=== PATIENT | female | born 1985 | race Caucasian/White ===

== ENCOUNTER 2020-11-27 10:28 | Emergency (ER) | payer BC, SELFPAY ==
[2020-11-27 10:36] VITALS: BP 108/69; PULSE 107; RESP 14; TEMP 37; O2SAT 100
--- NOTE | 2020-11-27 10:41 | ED.FEVER ---
HPI - Fever General Chief Complaint: Fever Stated Complaint: FEVER Time Seen by Provider: 11/27/20 10:40 Source: patient and RN notes reviewed Mode of arrival: ambulatory Limitations: no limitations History of Present Illness HPI Narrative: 35-year-old female presents to the [facility] with complaints of right flank pain and fevers. Now spread to the rest of the abdomen. Fevers as high as 101.3 Pain started tuesday night. MD elicited complaint: fever Related Data Home Medications Medication Instructions Recorded Confirmed norethindrone-e.estradiol-iron tablet 11/27/20 [Aurovela 24 Fe] Allergies Allergy/AdvReac Type Severity Reaction Status Date / Time No Known Allergies Allergy Verified 11/27/20 10:41 Review of Systems Review of Systems: All systems reviewed & are unremarkable except as noted in HPI and below Constitutional: Constitutional: Reports as per HPI and Reports fever(s) Eyes: Eyes: Reports no additional eye complaints ENT: Reports system reviewed and no additional complaints, except as documented, Denies dysphagia, Denies vertigo, Denies dizziness and Denies sore throat Cardiovascular: Cardiovascular: Reports no additional cardiovascular complaints and Denies chest pain Respiratory: Respiratory: Reports no additional respiratory complaints, Denies cough, Denies dyspnea and Denies wheezing Gastrointestinal: Gastrointestinal: Reports abdominal pain (Right flank, right lower quadrant) and Denies nausea Genitourinary: Genitourinary: Reports no additional female genitourinary complaints Musculoskeletal: Musculoskeletal: Reports no additional musculoskeletal complaints Integumentary/Breasts: Skin/Breast: Reports system reviewed and no additional complaints, except as docu Neurologic: Reports system reviewed and no additional complaints, except as documented Psychiatric: Psychiatric: Reports no additional psychiatric complaints Allergic/Immunologic: Allergic/Immunologic: Reports no additional allergic/immunologic complaints [facility] Past Medical History Medical History (Updated 11/27/20 @ 12:40 by Dara Carnes) No significant medical problems Surgical History Surgical History (Updated 11/27/20 @ 12:40 by Dara Carnes) No significant past surgical history Social History Social History (Updated 11/27/20 @ 12:40 by Dara Carnes) Living arrangements: with family Gender identity (if verbalized by the patient): Female Comments At the time of my signature, I reviewed and agree with the nursing past medical, surgical, social, and family history. There is no relevant family history pertinent to the patient complaint. Exam Const: General: healthy appearing, no acute distress and alert Nutritional Appearance: well nourished Orientation/consciousness: patient oriented x3 HENMT: Head: normal to inspection Ears: external ears normal, TM's normal bilaterally and EAC's normal Eyes: Pupils: Equal, round and reactive pupils present Neck: Neck: normal visual inspection, no lymphadenopathy and no meningeal signs Chest: Chest palpation & inspection: normal inspection of the chest Resp: Effort & Inspection: normal respiratory effort and no use of accessory muscles Auscultation: clear to auscultation bilaterally, no rales, no rhonchi and no wheezes Cardio: Rate: regular rate Rhythm: regular rhythm GI: GI Palp: Yes Soft to palpation, Yes Tenderness to palpation present (GI) (Right upper, right middle, right lower) and Yes Rebound tenderness present (Right lower quadrant) Auscultation: normal bowel sounds : General: Yes no CVA tenderness Back/Spine/Pelvis: Back: no CVA tenderness Skin: General skin exam: normal color Rashes: no rashes Wounds: no wounds Neuro: General: patient oriented x3, moves all extremities, no meningeal signs and no focal motor deficits Cranial nerves: Yes Nystagmus not present Speech: normal speech Gait exam (Neuro): Normal gait present Extrem:
== END 2020-11-27 10:55 | disposition short-term general hospital (02) ==
PROVIDERS: Emergency Provider Nurse Practitioner
DX: R10.31 Right lower quadrant pain (principal)
CPT/HCPCS: 99212; G0463

== ENCOUNTER 2020-11-27 11:28 | Observation (INO) | payer BC, SELFPAY ==
[2020-11-27] VITALS (7 sets, daily range): BP systolic 90–125; BP diastolic 56–68; PULSE 78–116; RESP 14–16; TEMP 36.7–39.2; O2SAT 97–100; BMI 25.4
--- NOTE | ~2020-11-27 | CT_ITS ---
EXAMINATION: CT abdomen pelvis w con DATE: 11/27/2020 14:12 INDICATION: Right lower quadrant and flank pain TECHNIQUE: Computed tomography (CT) of the abdomen and pelvis was performed with 100 cc Omnipaque 350 intravenous contrast. Automated exposure control and iterative reconstruction technique were employe d. Exam dose: 372.76 mGy-cm total exam DLP. COMPARISON: None. FINDINGS: The lung bases are clear. Normal heart size. No pericardial or pleural effusion. The liver, gallbladder, bile ducts, spleen, pancreas, pancreatic duct, and adrenal glands are unremar kable. There are multiple areas of diminished contrast enhancement of the right kidney, likely due to right acute pyelonephritis. There is mild right perinephric fat stranding and mild surrounding fascial thic kening. No urinary tract calculus or hydroureteronephrosis. The urinary bladder and uterus and adnexal areas are unremarkable. There is minimal free fluid in the posterior cul-de-sac, likely physiologic. Normal caliber of the abdominal aorta. No intraperitoneal or retroperitoneal or pelvic mass lesion or adenopathy or ascites. Normal appendix. Mild colonic diverticulosis; no CT evidence of diverticulitis. No bowel obstruction, bowel wall thickening, pneumatosis or intraperitoneal free air. Very small fat-containing umbilical hernia. Included skeletal structures are unremarkable. IMPRESSION: Multiple patchy areas of diminished contrast enhancement of the right kidney, likely due to acute pyelonephritis Reviewed, dictated and finalized at [facility]. Reviewed, dictated and finalized at [facility]. IMPRESSION: Multiple patchy areas of diminished contrast enhancement of the ri ght kidney, likely due to acute pyelonephritis
[2020-11-27 12:16] LABS: Hematocrit 33.9 % (37.0-47.0); Hemoglobin 11.8 g/dL (12.0-15.0); Mean Corpuscular HGB Conc 34.8 g/dl (32-36); Mean Corpuscular Hemoglobin 33.7 pg (26-34); Mean Corpuscular Volume 96.9 fl (80-100); Mean Platelet Volume 9.6 fl (7.4-10.4); Platelet Count Result 301 k/mm3 (150-375); Red Cell Distribution Width 11.9 % (11.5-14.5); White Blood Count 28.2 K/mm3 (4.5-10.0)
[2020-11-27 12:32] LABS: Anion Gap 13 mmol/L (8-16); Blood Urea Nitrogen 11 mg/dL (7-17); Calcium 8.8 mg/dL (8.4-10.2); Carbon Dioxide 23 mmol/L (22-30); Chloride 104 mmol/L (98-107); Estimated CRCL calculation 48 ml/min; Estimated Glomerular Filt Rate 57; Glucose 111 mg/dL (65-110); Potassium 3.6 mmol/L (3.4-5.0); Sodium 140 mmol/L (137-145)
[2020-11-27 12:35] LABS: Add Urine Microscopic? YES; Appearance Urine Cloudy (Clear); Bacteria Urine Trace /hpf; Bilirubin Urine Negative (Negative); Blood Urine 2+ (Negative); Color Urine Yellow (Yellow); Glucose Urine UA Negative (Negative); Ketones Urine Trace mg/dL (Negative); Leukocyte Esterase Ur 3+ LEU/UL (Negative); Mucus Urine Rare /lpf; Nitrate Urine Positive (Negative); Protein Urine 3+ mg/dL (Negative); Specific Grav Ur 1.013 (1.001-1.035); Squamous Epithelial Cell Urine Many /hpf (Few); Urobilinogen Urine Negative mg/dL (<2.0); WBC Urine 51-75 /hpf
[2020-11-27 12:42] LABS: Band Neutrophils Percent 11 % (0-6); Lymphocytes Absolute Manual 1.41 K/mm3 (1.1-4.5); Neutrophils Absolute Manual 26.79 K/mm3 (1.7-7.2); Neutrophils Percent Manual 84 % (46-73); Platelet Estimate Adequate (Adequate); Total Cells Counted 100
--- NOTE | 2020-11-27 13:50 | ED.GENADULT ---
HPI - General Adult General Chief complaint: Abdominal Pain Stated complaint: flank pain right Time Seen by Provider: 11/27/20 13:17 History of Present Illness HPI narrative: Patient is a 35-year-old female who presents ER with reports of abdominal pain and feeling unwell. Reports feeling weak and unwell over the last 2 weeks. She reports 2 days ago she developed pain in her right flank that felt like a pulled muscle that wrapped around to the front of her abdomen. She developed fever with sweats and chills. She also had nausea and vomiting. She went to an urgent care today to obtain a Covid swab so she could return to work and was referred here. She denies any urinary frequency urgency or dysuria. No symptoms of a UTI and she has had UTIs previously. Denies diarrhea. She does have pain in her lower abdomen that is worse with movement. No alleviating factors that she reports. Related Data Home Medications Medication Instructions Recorded Confirmed norethindrone-e.estradiol-iron tablet 11/27/20 [Aurovela 24 Fe] Allergies Allergy/AdvReac Type Severity Reaction Status Date / Time No Known Allergies Allergy Verified 11/27/20 10:41 Review of Systems Review of Systems: All systems reviewed & are unremarkable except as noted in HPI and below Constitutional: Constitutional: Reports chills, Reports fatigue and Reports fever(s) ENT: Denies nasal congestion and Denies sore throat Gastrointestinal: Gastrointestinal: Reports abdominal pain, Denies diarrhea, Reports nausea and Reports vomiting Genitourinary: Genitourinary: Denies nocturia, Denies dysuria and Reports flank pain Musculoskeletal: Musculoskeletal: Denies back pain and Denies muscle cramps PMFSH Past Medical History Medical History (Updated 11/27/20 @ 15:50 by Dennis Valdivia MD) No significant medical problems Surgical History Surgical History (Updated 11/27/20 @ 12:40 by Dara Carnes) No significant past surgical history Social History Social History (Updated 11/27/20 @ 12:40 by Dara Carnes) Living arrangements: with family Gender identity (if verbalized by the patient): Female Exam Narrative: GENERAL: Well-appearing, well-nourished, and in no acute distress. HEAD: Normocephalic, atraumatic. EYES: PERRL and EOMI. CHEST: Clear to auscultation. No respiratory distress. HEART: Tachycardic and regular. Normal peripheral pulses. ABDOMEN: Soft, tender palpation right lower quadrant with guarding, mild tenderness to left lower quadrant that radiates into her right lower quadrant, mild tenderness to right upper quadrant without guarding, nondistended. Minimal right CVA tenderness. EXTREMITIES: Normal range of motion. No edema. SKIN: Warm, dry, no rash. NEURO: N Alert and oriented x3. PSYCH: Normal mood and affect. Course Course Emergency Course: Patient informed results. Admit to hospital service. Ceftriaxone ordered. Vital Signs Vital signs: Vital Signs Temperature 98.1 F 11/27/20 12:00 Pulse Rate 101 H 11/27/20 12:00 Respiratory Rate 14 11/27/20 12:00 Blood Pressure 119/67 11/27/20 12:00 Pulse Oximetry 100 11/27/20 12:00 Temperature 98.1 F 11/27/20 12:00 Pulse Rate 101 H 11/27/20 12:00 Respiratory Rate 14 11/27/20 12:00 Blood Pressure 119/67 11/27/20 12:00 Pulse Oximetry 100 11/27/20 12:00 Medical Decision Making Vital Signs Vital Signs: Vital Signs Temperature 98.1 F 11/27/20 12:00 Pulse Rate 101 H 11/27/20 12:00 Respiratory Rate 14 11/27/20 12:00 Blood Pressure 119/67 11/27/20 12:00 Pulse Oximetry 100 11/27/20 12:00 Temperature 98.1 F 11/27/20 12:00 Pulse Rate 101 H 11/27/20 12:00 Respiratory Rate 14 11/27/20 12:00 Blood Pressure 119/67 11/27/20 12:00 Pulse Oximetry 100 11/27/20 12:00 Lab Data Result diagrams: 11/27/20 12:06 11/27/20 12:06 Labs: Lab Results 11/27/20 11/27/20 11/27/20 Range/Units
[2020-11-27] MEDS: SODIUM CHLORIDE 0.9% IV 1,000 ML 999 ML IV CONT ×2 (13:53→20:34)
[2020-11-27] MEDS: MORPHINE SULFATE (*CRX) 4 MG/ML INJ IV PUSH ×2 (13:55→16:56)
[2020-11-27] MEDS: ONDANSETRON INJ 4 MG/2 ML VIAL IV PUSH ×2 (13:55→18:48)
[2020-11-27] MEDS: ACETAMINOPHEN 325 MG TABLET 650 MG PO ×2 (15:30→18:47)
--- NOTE | 2020-11-27 17:25 | ADMGEN ---
This patient, Minal Dang, was admitted to 2 Medical Room 254-01. Patient/family oriented to hospital policies and general routines including ID bracelet, bed and alarms, visiting hours, pain management, procedures, bathroom and other care routines, personal items, smoking policy, room service/diet, and visiting hours. Information on how to activate the Rapid Response Team has been discussed. Patient/Family are encouraged to report perceived risks to care and to ask questions if they do not understand what they are told or what they should do. Report received from ELISSA Gallardo.
[2020-11-27] MEDS: SODIUM CHLORIDE 0.9% IV 1,000 ML 125 ML IV CONT (17:39)
--- NOTE | 2020-11-27 18:00 | PM.IMHP ---
H&P: HPI History of Present Illness Date/Time: 11/27/20 18:00 Chief Complaint: Fever and right flank pain. Narrative: This is a 35-year-old female without significant medical problems who presented to the emergency department earlier today from urgent care for evaluation of fever and right flank pain. She has not really felt well for the past 2 weeks, just a little bit run down without specific symptoms. On Tuesday evening however she developed some discomfort in her right lower back which she attributed to perhaps a strained muscle though she had no injury. Later that evening she developed chills, sweats, and fever up to 103? for which she has been taking ibuprofen. Since that time the pain in her right lower back has continued to worsen, and she describes sharp shooting pain that radiates to the right flank and into the right lower quadrant. The pain is somewhat better if she is hunched forward and it seems to be worse with movement and palpation. CT of the abdomen and pelvis done today on arrival to the emergency department showed multiple patchy areas of diminished contrast enhancement of the right kidney, likely due to pyelonephritis. Interestingly she has not had urinary symptoms and she specifically denies dysuria, urgency, hesitancy, and incontinence. Appetite has been fair. No nausea or vomiting. Review of Systems Review of Systems: Twelve systems were reviewed. No headache. No cold or flu symptoms. She denies cough and shortness of breath. No diarrhea. Last menstrual period was approximately 3 weeks ago. No vaginal discharge. Except as documented, all other systems were reviewed and are negative. [facility] Past Medical History Medical History (Updated 11/27/20 @ 17:23 by Yolanda Barry PA-C) No significant medical problems Surgical History Surgical History (Updated 11/27/20 @ 21:12 by Yolanda Barry PA-C) History of eye surgery X2 as a child for strabismus. Family History Family History Other Lupus Father Diabetes mellitus Hypertension Mother Neoplasm of back Social History Social History (Updated 11/27/20 @ 21:13 by Yolanda Barry PA-C) Social History: Surrogate decision maker: Juan Dang, spouse. Code status: Full code. Smoking status: Former smoker Tobacco type: cigarettes Alcohol intake: never Substance use: former Substance use type: opiates Last use: 11 years Living arrangements: with family Additional living arrangements comments: The patient lives with her and 2 children [place]. 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 Meds Home Medications and Allergies Home Medications Medication Instructions Recorded Confirmed Type norethindrone-e.estradiol-iron 1 tablet PO DAILY 11/27/20 11/27/20 History [Aurovela 24 Fe] Allergies Allergy/AdvReac Type Severity Reaction Status Date / Time No Known Allergies Allergy Verified 11/27/20 17:20 Vital Signs Vital Signs - 24 hr 11/27/20 12:00 Temperature 98.1 F Pulse Rate 101 H Respiratory Rate 14 Blood Pressure 119/67 Pulse Oximetry 100 Exam Narrative: General: Well-developed female sitting up in bed no distress. Weight: 61 kg. BMI: 25.4. Nontoxic in appearance. HEENT: Normocephalic, atraumatic. PERRL, EOMI. Sclerae anicteric. Tacky mucous membranes. Neck: Supple. Respiratory: Lungs are clear to auscultation bilaterally. Cardiovascular: Tachycardic with S1-S2. Gastrointestinal: Abdomen is soft and nondistended with positive bowel sounds. She is tender to palpation in the right low back, flank, and right mid and lower quadrant. Positive right-sided CVA tenderness. Skin: Warm and dry. No rash or lesions on limited exam. Extremities: No cyanosis, clubbing, or edema. Radial and pedal pulses intact. Neurological: Alert. Cranial nerves 2-12 are grossly intact. No eun
[2020-11-27 18:15] LABS: Lactic Acid Reflex 0.7 mmol/L (0.7-2.1)
[2020-11-27 18:25] LABS: Alanine Aminotransferase 17 U/L (4-35); Albumin Level 4.1 g/dL (3.5-5.1); Alkaline Phosphatase 67 U/L (38-126); Aspartate Amino Transferase 21 U/L (14-36); Bilirubin,Total 0.6 mg/dL (0.2-1.3); Magnesium 1.5 mg/dL (1.6-2.3)
[2020-11-27 18:55] LABS: CRP 31.8 mg/dL (<1.0)
[2020-11-27] MEDS: SODIUM CHLORIDE 0.9% IV 1,000 ML 75 ML IV CONT (20:39)
[2020-11-28] VITALS (12 sets, daily range): BP systolic 96–110; BP diastolic 58–64; PULSE 77–111; RESP 14–20; TEMP 36.7–38.5; O2SAT 95–100
[2020-11-28] MEDS: MORPHINE SULFATE (*CRX) 2 MG/ML INJ IV PUSH (00:31)
[2020-11-28] MEDS: KETOROLAC 30 MG/ML VIAL (*BKC) IV PUSH (01:00)
[2020-11-28] MEDS: HYDROcodone/acetaminophen (*CRX) 5-325 MG TABLET 1 TAB PO ×2 (03:02→07:28)
[2020-11-28] MEDS: SODIUM CHLORIDE 0.9% IV 1,000 ML 100 ML IV CONT (04:03)
[2020-11-28 06:40] LABS: Basophils Absolute Auto 0.1 K/mm3 (0.0-0.1); Basophils Percent Auto 0.2 % (0.2-1.2); Eosinophils Absolute Auto 0.1 K/mm3 (0-0.3); Eosinophils Percent Auto 0.2 % (0-4.4); Hematocrit 27.7 % (37.0-47.0); Hemoglobin 9.4 g/dL (12.0-15.0); Immature Granulocyte Absolute 0.63 K/mm3 (0.00-0.031); Immature Granulocyte Percent A 2.8 % (0-0.5); Lymphocytes Percent Auto 9.5 % (18.3-44.2); Mean Corpuscular HGB Conc 33.9 g/dl (32-36); Mean Corpuscular Hemoglobin 33.6 pg (26-34); Mean Corpuscular Volume 98.9 fl (80-100); Mean Platelet Volume 10.3 fl (7.4-10.4); Monocytes Absolute Auto 1.6 K/mm3 (0.1-0.6); Monocytes Percent Auto 7.2 % (2.6-8.5); Neutrophils Absolute Auto 17.7 K/mm3 (1.3-6.7); Neutrophils Percent Auto 80.1 % (45.5-73.1); Platelet Count Result 228 k/mm3 (150-375); Red Cell Distribution Width 11.9 % (11.5-14.5); White Blood Count 22.1 K/mm3 (4.5-10.0)
[2020-11-28 06:47] LABS: Alanine Aminotransferase 16 U/L (4-35); Albumin Level 3.1 g/dL (3.5-5.1); Alkaline Phosphatase 65 U/L (38-126); Anion Gap 8 mmol/L (8-16); Aspartate Amino Transferase 23 U/L (14-36); Bilirubin,Total 0.6 mg/dL (0.2-1.3); Blood Urea Nitrogen 10 mg/dL (7-17); Calcium 7.2 mg/dL (8.4-10.2); Carbon Dioxide 19 mmol/L (22-30); Chloride 108 mmol/L (98-107); Estimated CRCL calculation 58 ml/min; Estimated Glomerular Filt Rate > 60; Glucose 103 mg/dL (65-110); Magnesium 1.7 mg/dL (1.6-2.3); Potassium 3.3 mmol/L (3.4-5.0); Sodium 135 mmol/L (137-145)
--- NOTE | 2020-11-28 07:32 | P.PNIM_ITS ---
Progress Note: A&P Assessment and Plan (1) Sepsis: Code(s): A41.9 - Sepsis, unspecified organism Status: Acute Assessment and Plan: * meets sepsis criteria with fever, tachycardia, and leukocytosis with bandemia in the setting of infection * Abd/Pel CT: Multiple patchy areas of diminished contrast enhancement of the right kidney, likely due to acute pyelonephritis * Lactic acid levels within normal limits however was drawn after she received a bolus of IV fluids * Blood and urine cultures are pending * UA: Cloudy, urine protein 3+, urine blood 2+, urine nitrate positive, leukocyte esterase 3+, wbc's 51-75, squamous cells many * IV antibiotics: Ceftriaxone * IV fluids NS 125 ml/hr, will DC since patient has good PO intake * WBC: 28.2 on admission with high Neuts and bands * Trend labs (2) Pyelonephritis: Code(s): N12 - Tubulo-interstitial nephritis, not specified as acute or chronic Status: Acute Assessment and Plan: * Found on CT * See above (3) Renal insufficiency: Code(s): N28.9 - Disorder of kidney and ureter, unspecified Status: Acute Assessment and Plan: * Cr. could be a little elevated at 1.10 on admission * Current 0.90 * Continue to trend * Strict I&O * Encourage PO intake (4) Hypomagnesemia: Code(s): E83.42 - Hypomagnesemia Status: Acute Assessment and Plan: * MG 1.5 on admission currently 1.7 * Replace with 2gm * Trend labs * Replace as needed (5) Hypokalemia: Code(s): E87.6 - Hypokalemia Status: Acute Assessment and Plan: * K is 3.3 today * Replaced with 40 PO once * Trend labs * Replace as needed Time Spent With Patient Time with patient: 25 - 35 minutes Subjective Date/time seen: 11/28/20 08:00 Interval history: Patient is a 35-year-old female who is here for pyelonephritis. Patient stated she is feeling better today however she is still exhibiting fevers and chills. Patient stated she still having a lot of pain and rates her pain a 6/10 in the right lower quadrant radiating to her back. She does not complain of any urinary dysfunction. Magnesium and potassium were low at this time will replace. Patient denies chest pain, shortness of breath, weakness, fatigue, sweats. Patient also stated that morphine was not working for and is little skeptical about the [place]. She did say that she did better with the Toradol. Patient was hypotensive through out the night which seems to be resolved this morning. She is not covid vaccinated and is not wanting to be covid vaccinated. Review of Systems Review of Systems: All systems reviewed & are unremarkable except as noted in HPI and below Exam Const: General: cooperative, healthy appearing, comfortable, no acute distress, well developed, alert, awake and Physically active Nutritional Appearance: well nourished Orientation/consciousness: oriented to person, oriented to place, oriented to time and patient oriented x3 Limitations: no limitations HENMT: Head: normal to inspection Ears: hearing grossly normal bilaterally General nose exam: Normal external nose present Mouth: Yes Normal oral and palatal mucosa present, Yes lip normal and Yes tongue normal Teeth and gingiva: abnormal tooth and associated gingiva and poor dentition Eyes: General: appearance normal, both eyes and all related structures Neck: Neck: normal visual inspection, full RO
--- NOTE | 2020-11-28 07:32 | PM.IMPN ---
Progress Note: A&P Assessment and Plan (1) Sepsis: Code(s): A41.9 - Sepsis, unspecified organism Status: Acute Assessment and Plan: meets sepsis criteria with fever, tachycardia, and leukocytosis with bandemia in the setting of infection Abd/Pel CT: Multiple patchy areas of diminished contrast enhancement of the right kidney, likely due to acute pyelonephritis Lactic acid levels within normal limits however was drawn after she received a bolus of IV fluids Blood and urine cultures are pending UA: Cloudy, urine protein 3+, urine blood 2+, urine nitrate positive, leukocyte esterase 3+, wbc's 51-75, squamous cells many IV antibiotics: Ceftriaxone IV fluids NS 125 ml/hr, will DC since patient has good PO intake WBC: 28.2 on admission with high Neuts and bands Trend labs (2) Pyelonephritis: Code(s): N12 - Tubulo-interstitial nephritis, not specified as acute or chronic Status: Acute Assessment and Plan: Found on CT See above (3) Renal insufficiency: Code(s): N28.9 - Disorder of kidney and ureter, unspecified Status: Acute Assessment and Plan: Cr. could be a little elevated at 1.10 on admission Current 0.90 Continue to trend Strict I&O Encourage PO intake (4) Hypomagnesemia: Code(s): E83.42 - Hypomagnesemia Status: Acute Assessment and Plan: MG 1.5 on admission currently 1.7 Replace with 2gm Trend labs Replace as needed (5) Hypokalemia: Code(s): E87.6 - Hypokalemia Status: Acute Assessment and Plan: K is 3.3 today Replaced with 40 PO once Trend labs Replace as needed Time Spent With Patient Time with patient: 25 - 35 minutes Subjective Date/time seen: 11/28/20 08:00 Interval history: Patient is a 35-year-old female who is here for pyelonephritis. Patient stated she is feeling better today however she is still exhibiting fevers and chills. Patient stated she still having a lot of pain and rates her pain a 6/10 in the right lower quadrant radiating to her back. She does not complain of any urinary dysfunction. Magnesium and potassium were low at this time will replace. Patient denies chest pain, shortness of breath, weakness, fatigue, sweats. Patient also stated that morphine was not working for and is little skeptical about the [employer]. She did say that she did better with the Toradol. Patient was hypotensive through out the night which seems to be resolved this morning. She is not covid vaccinated and is not wanting to be covid vaccinated. Review of Systems Review of Systems: All systems reviewed & are unremarkable except as noted in HPI and below Exam Const: General: cooperative, healthy appearing, comfortable, no acute distress, well developed, alert, awake and Physically active Nutritional Appearance: well nourished Orientation/consciousness: oriented to person, oriented to place, oriented to time and patient oriented x3 Limitations: no limitations HENMT: Head: normal to inspection Ears: hearing grossly normal bilaterally General nose exam: Normal external nose present Mouth: Yes Normal oral and palatal mucosa present, Yes lip normal and Yes tongue normal Teeth and gingiva: abnormal tooth and associated gingiva and poor dentition Eyes: General: appearance normal, both eyes and all related structures Neck: Neck: normal visual inspection, full ROM, trachea midline and supple Chest: Chest palpation & inspection: normal inspection of the chest Resp: Effort & Inspection: normal respiratory effort and able to speak in complete sentences Auscultation: clear to auscultation bilaterally Cardio: Jugular venous distension: no JVD Rate: regular rate Rhythm: regular rhythm Heart sounds: S1 normal heart sound present and S2 normal heart sound present Peripheral pulses: Peripheral pulses 2+ throughout GI: Inspection: normal to inspection GI Palp: Yes abd
[2020-11-28] MEDS: MAGNESIUM SULF 2 GM/WATER 50ML 2 GM/50 ML BAG IVPB (09:27)
[2020-11-28] MEDS: POTASSIUM CHLORIDE 20 MEQ TABLET 40 MEQ PO (09:27)
[2020-11-28] MEDS: KETOROLAC 15 MG/ML VIAL (*BKC) IV PUSH ×2 (11:53→20:40)
[2020-11-28] MEDS: ACETAMINOPHEN 325 MG TABLET 650 MG PO (17:15)
[2020-11-29] MEDS: ACETAMINOPHEN 325 MG TABLET 650 MG PO ×2 (00:14→04:47)
[2020-11-29 01:32] VITALS: BP 110/66; PULSE 90; RESP 18; TEMP 36.7; O2SAT 100
[2020-11-29 04:47] VITALS: TEMP 37.2
[2020-11-29] MEDS: KETOROLAC 15 MG/ML VIAL (*BKC) IV PUSH (04:47)
[2020-11-29 05:34] LABS: Basophils Percent Auto 0.2 % (0.2-1.2); Eosinophils Absolute Auto 0.1 K/mm3 (0-0.3); Eosinophils Percent Auto 0.4 % (0-4.4); Hematocrit 26.7 % (37.0-47.0); Hemoglobin 9.1 g/dL (12.0-15.0); Immature Granulocyte Absolute 0.15 K/mm3 (0.00-0.031); Immature Granulocyte Percent A 0.9 % (0-0.5); Lymphocytes Absolute Auto 1.74 K/mm3 (0.9-3.2); Lymphocytes Percent Auto 10.6 % (18.3-44.2); Mean Corpuscular HGB Conc 34.1 g/dl (32-36); Mean Corpuscular Volume 96.7 fl (80-100); Mean Platelet Volume 10.1 fl (7.4-10.4); Monocytes Absolute Auto 1.1 K/mm3 (0.1-0.6); Monocytes Percent Auto 6.7 % (2.6-8.5); Neutrophils Absolute Auto 13.4 K/mm3 (1.3-6.7); Neutrophils Percent Auto 81.2 % (45.5-73.1); Platelet Count Result 274 k/mm3 (150-375); Red Blood Count 2.76 M/mm3 (4.2-5.4); Red Cell Distribution Width 12.1 % (11.5-14.5); White Blood Count 16.5 K/mm3 (4.5-10.0)
[2020-11-29 05:47] VITALS: TEMP 36.9
[2020-11-29 05:48] LABS: Alanine Aminotransferase 27 U/L (4-35); Albumin Level 3.3 g/dL (3.5-5.1); Alkaline Phosphatase 89 U/L (38-126); Anion Gap 7 mmol/L (8-16); Aspartate Amino Transferase 32 U/L (14-36); Bilirubin,Total 0.7 mg/dL (0.2-1.3); Blood Urea Nitrogen 10 mg/dL (7-17); Calcium 8.2 mg/dL (8.4-10.2); Carbon Dioxide 21 mmol/L (22-30); Chloride 109 mmol/L (98-107); Estimated CRCL calculation 73 ml/min; Estimated Glomerular Filt Rate > 60; Glucose 89 mg/dL (65-110); Magnesium 2.6 mg/dL (1.6-2.3); Potassium 3.9 mmol/L (3.4-5.0); Sodium 137 mmol/L (137-145)
[2020-11-29 05:59] VITALS: BP 128/76; PULSE 80; RESP 16; TEMP 36.8; O2SAT 100
--- NOTE | 2020-11-29 08:14 | PM.DS ---
DS: Admitting Diagnosis Discharge Date 11/29/2020 Admitting Diagnosis 11/27/2020 DS: Discharge Diagnosis Discharge Diagnosis (1) Sepsis: Code(s): A41.9 - Sepsis, unspecified organism Status: Acute Assessment and Plan: met sepsis criteria at admission with fever, tachycardia, and leukocytosis with bandemia in the setting of infection - all improved or resolved. Abd/Pel CT: Multiple patchy areas of diminished contrast enhancement of the right kidney, likely due to acute pyelonephritis Lactic acid levels within normal limits however was drawn after she received a bolus of IV fluids Blood cultures with out any bacterial growth and urine culture showed E.Coli sensitive to current antibiotic and oral antibiotic UA: Cloudy, urine protein 3+, urine blood 2+, urine nitrate positive, leukocyte esterase 3+, wbc's 51-75, squamous cells many - repeating Urine culture after antibiotic course completed. IV antibiotics: Ceftriaxone, changed to oral antibiotics at discharge. IV fluids NS 125 ml/hr,discontinued and tolerating oral well. WBC: 28.2 on admission with high Neuts and bands - improved to 16.5 today. repeated labwork as outpatient and she is to follow up with PCP in 3-14 days. (2) Pyelonephritis: Code(s): N12 - Tubulo-interstitial nephritis, not specified as acute or chronic Status: Acute Assessment and Plan: Found on CT See above plan improving E.coli UTI (3) Renal insufficiency: Code(s): N28.9 - Disorder of kidney and ureter, unspecified Status: Acute Assessment and Plan: Cr. could be a little elevated at 1.10 on admission yesterday 0.90, further improved to 0.7 today repeated labs in 1-2 weeks with PCP Follow up Strict I&O, urine appearance much improved per patient report, nursing strict I and Os missing multiple voids of patient as she is having good urine output today per patient and per nurse. Encourage PO intake from dehydration and UTI/sepsis improved, resolved. (4) Hypomagnesemia: Code(s): E83.42 - Hypomagnesemia Status: Acute Assessment and Plan: MG 1.5 on admission, yesterday 1.7, and 2.6 today. Replaced with 2gm resolved. (5) Hypokalemia: Code(s): E87.6 - Hypokalemia Status: Acute Assessment and Plan: K is 3.3 yesterday, 3.9 K today Replaced with 40 PO once resolved DS: Summary Hospital Course Hospital Course: Found to have pyelo and E.Coli UTI, no growth on blood cultures, treated with IV antibiotics for 3 days, IVF hydration, discharging on oral antibiotics for 14 days, repeating urine culture and labs, expected to F/U with PCP. Improved, tolerating orals well, patient wanting to go home today. Time Spent with Patient Time attestation: Total time spent providing and/or coordinating discharge services:60 minutes Exam Narrative: General: Well-developed female sitting up in bed no distress. Weight: 61 kg. BMI: 25.4. Nontoxic in appearance. HEENT: Normocephalic, atraumatic. PERRL, EOMI. Sclerae anicteric. Tacky mucous membranes. Neck: Supple. Respiratory: Lungs are clear to auscultation bilaterally. Cardiovascular: NOrmal rate and rhythm on ausculation with S1-S2. Gastrointestinal: Abdomen is soft and nondistended with positive bowel sounds. She is tender to palpation in the right low back, flank, and right mid and lower quadrant. Positive right-sided CVA tenderness. Skin: Warm and dry. No rash or lesions on limited exam. Extremities: No cyanosis, clubbing, or edema. Radial and pedal pulses intact. Neurological: Alert. Cranial nerves 2-12 are grossly intact. No gross focal deficits to casual conversation. Psychiatric: Pleasant and cooperative with normal mood and affect. Judgment and insight intact. Const: General: cooperative, healthy appearing, comfortable, no acute distress, well developed, alert, awake and Physically active Nutritional Appearance: well nourished Orientat
--- NOTE | 2020-11-29 08:14 | P.DS_ITS ---
DS: Admitting Diagnosis Discharge Date 11/29/2020 Admitting Diagnosis 11/27/2020 DS: Discharge Diagnosis Discharge Diagnosis (1) Sepsis: Code(s): A41.9 - Sepsis, unspecified organism Status: Acute Assessment and Plan: * met sepsis criteria at admission with fever, tachycardia, and leukocytosis with bandemia in the setting of infection - all improved or resolved. * Abd/Pel CT: Multiple patchy areas of diminished contrast enhancement of the right kidney, likely due to acute pyelonephritis * Lactic acid levels within normal limits however was drawn after she received a bolus of IV fluids * Blood cultures with out any bacterial growth and urine culture showed E.Coli sensitive to current antibiotic and oral antibiotic * UA: Cloudy, urine protein 3+, urine blood 2+, urine nitrate positive, leukocyte esterase 3+, wbc's 51-75, squamous cells many - repeating Urine culture after antibiotic course completed. * IV antibiotics: Ceftriaxone, changed to oral antibiotics at discharge. * IV fluids NS 125 ml/hr,discontinued and tolerating oral well. * WBC: 28.2 on admission with high Neuts and bands - improved to 16.5 today. * repeated labwork as outpatient and she is to follow up with PCP in 3-14 days. (2) Pyelonephritis: Code(s): N12 - Tubulo-interstitial nephritis, not specified as acute or chronic Status: Acute Assessment and Plan: * Found on CT * See above plan * improving * E.coli UTI (3) Renal insufficiency: Code(s): N28.9 - Disorder of kidney and ureter, unspecified Status: Acute Assessment and Plan: * Cr. could be a little elevated at 1.10 on admission * yesterday 0.90, further improved to 0.7 today * repeated labs in 1-2 weeks with PCP Follow up * Strict I&O, urine appearance much improved per patient report, nursing strict I and Os missing multiple voids of patient as she is having good urine output today per patient and per nurse. * Encourage PO intake * from dehydration and UTI/sepsis * improved, resolved. (4) Hypomagnesemia: Code(s): E83.42 - Hypomagnesemia Status: Acute Assessment and Plan: * MG 1.5 on admission, yesterday 1.7, and 2.6 today. * Replaced with 2gm * resolved. (5) Hypokalemia: Code(s): E87.6 - Hypokalemia Status: Acute Assessment and Plan: * K is 3.3 yesterday, 3.9 K today * Replaced with 40 PO once * resolved DS: Summary Hospital Course Hospital Course: Found to have pyelo and E.Coli UTI, no growth on blood cultures, treated with IV antibiotics for 3 days, IVF hydration, discharging on oral antibiotics for 14 days, repeating urine culture and labs, expected to F/U with PCP. Improved, tolerating orals well, patient wanting to go home today. Time Spent with Patient Time attestation: Total time spent providing and/or coordinating discharge services:60 minutes Exam Narrative: General: Well-developed female sitting up in bed no distress. Weight: 61 kg. BMI: 25.4. Nontoxic in appearance. HEENT: Normocephalic, atraumatic. PERRL, EOMI. Sclerae anicteric. Tacky mucous membranes. Neck: Supple. Respiratory: Lungs are clear to auscultation bilaterally. Cardiovascular: NOrmal rate and rhythm on ausculation with S1-S2. Gastrointestinal: Abdomen is soft and nondistended with positive bowel sounds. She is tender to palpation in the right low back, flank, and right mid and lower quadrant. Positive right-sided CVA tenderness. Skin: Warm and dry. No rash or lesions on limited exam. Extremities: No cyanosis, clubbing, or gillian
[2020-11-29 10:20] VITALS: BP 116/82; PULSE 67; RESP 12; TEMP 36.6; O2SAT 100
== END 2020-11-29 11:20 | disposition home or self-care (01) ==
LOC: ANHED 15:50 → ANH2MED 17:03
PROVIDERS: Nurse Practitioner; Physician Assistant; Admitting Provider Internal Medicine; Emergency Provider Emergency Medicine; Visit Provider Internal Medicine
DX: A41.9 Sepsis, unspecified organism (principal); N12 Tubulo-interstitial nephritis, not specified as acute or chronic; N28.9 Disorder of kidney and ureter, unspecified; E83.42 Hypomagnesemia; E87.6 Hypokalemia; R10.9 Unspecified abdominal pain; Z87.891 Personal history of nicotine dependence
CPT/HCPCS: 36415; 74177; 80048; 80053; 80076; 81001; 81025; 83605; 83735; 85025; 86140; 87040; 87077; 87086; 87088; 87186; 96361; 96365; 96367; 96375; 96376; 99212; 99285; A9270; G0378; G0379; G0463; J0696; J1885; J2270; J2405; J3475; J7030; Q9967

== ENCOUNTER 2020-12-12 13:17 | Outpatient (CLI) | payer BC, SELFPAY ==
[2020-12-12 19:05] LABS: Basophils Absolute Auto 0.1 K/mm3 (0.0-0.1); Eosinophils Absolute Auto 0.1 K/mm3 (0-0.3); Eosinophils Percent Auto 0.9 % (0-4.4); Hematocrit 36.6 % (37.0-47.0); Hemoglobin 11.9 g/dL (12.0-15.0); Immature Granulocyte Absolute 0.02 K/mm3 (0.00-0.031); Immature Granulocyte Percent A 0.3 % (0-0.5); Lymphocytes Absolute Auto 3.22 K/mm3 (0.9-3.2); Lymphocytes Percent Auto 41.4 % (18.3-44.2); Mean Corpuscular HGB Conc 32.5 g/dl (32-36); Mean Corpuscular Hemoglobin 32.9 pg (26-34); Mean Corpuscular Volume 101.1 fl (80-100); Mean Platelet Volume 8.6 fl (7.4-10.4); Monocytes Absolute Auto 0.4 K/mm3 (0.1-0.6); Monocytes Percent Auto 5.5 % (2.6-8.5); Neutrophils Percent Auto 50.9 % (45.5-73.1); Platelet Count Result 1025 k/mm3 (150-375); Red Blood Count 3.62 M/mm3 (4.2-5.4); Red Cell Distribution Width 11.6 % (11.5-14.5); White Blood Count 7.8 K/mm3 (4.5-10.0)
[2020-12-12 19:12] LABS: Magnesium 2.1 mg/dL (1.6-2.3)
[2020-12-12 19:13] LABS: Alanine Aminotransferase 21 U/L (4-35); Albumin Level 4.8 g/dL (3.5-5.1); Alkaline Phosphatase 85 U/L (38-126); Anion Gap 17 mmol/L (8-16); Aspartate Amino Transferase 28 U/L (14-36); Bilirubin,Total 0.5 mg/dL (0.2-1.3); Blood Urea Nitrogen 25 mg/dL (7-17); Calcium 10.3 mg/dL (8.4-10.2); Carbon Dioxide 22 mmol/L (22-30); Chloride 102 mmol/L (98-107); Estimated Glomerular Filt Rate > 60; Glucose 86 mg/dL (65-110); Potassium 5.4 mmol/L (3.4-5.0); Sodium 141 mmol/L (137-145)
[2020-12-12 19:23] LABS: Platelet Estimate Increased (Adequate)
== END 2020-12-12 13:18 | disposition home or self-care (01) ==
LOC: ANHBWCLAB 13:19
PROVIDERS: PCP Family Medicine; Visit Provider Nurse Practitioner
DX: E83.42 Hypomagnesemia (principal); D64.9 Anemia, unspecified; N39.0 Urinary tract infection, site not specified; B96.20 Unspecified Escherichia coli [E. coli] as the cause of diseases classified elsewhere; A41.9 Sepsis, unspecified organism; N12 Tubulo-interstitial nephritis, not specified as acute or chronic
CPT/HCPCS: 36415; 80053; 83735; 85025

== ENCOUNTER 2021-01-16 11:52 | Outpatient (CLI) | payer BC, SELFPAY ==
[2021-01-16 20:22] LABS: Basophils Absolute Auto 0.1 K/mm3 (0.0-0.1); Basophils Percent Auto 0.7 % (0.2-1.2); Eosinophils Absolute Auto 0.2 K/mm3 (0-0.3); Eosinophils Percent Auto 2.1 % (0-4.4); Hematocrit 35.7 % (37.0-47.0); Hemoglobin 11.8 g/dL (12.0-15.0); Immature Granulocyte Absolute 0.01 K/mm3 (0.00-0.031); Immature Granulocyte Percent A 0.1 % (0-0.5); Lymphocytes Absolute Auto 2.76 K/mm3 (0.9-3.2); Lymphocytes Percent Auto 38.4 % (18.3-44.2); Mean Corpuscular HGB Conc 33.1 g/dl (32-36); Mean Corpuscular Hemoglobin 33.4 pg (26-34); Mean Corpuscular Volume 101.1 fl (80-100); Mean Platelet Volume 9.9 fl (7.4-10.4); Monocytes Absolute Auto 0.4 K/mm3 (0.1-0.6); Monocytes Percent Auto 5.4 % (2.6-8.5); Neutrophils Absolute Auto 3.8 K/mm3 (1.3-6.7); Neutrophils Percent Auto 53.3 % (45.5-73.1); Platelet Count Result 413 k/mm3 (150-375); Red Blood Count 3.53 M/mm3 (4.2-5.4); White Blood Count 7.2 K/mm3 (4.5-10.0)
[2021-01-16 20:30] LABS: Anion Gap 9 mmol/L (8-16); Blood Urea Nitrogen 14 mg/dL (7-17); Calcium 9.6 mg/dL (8.4-10.2); Carbon Dioxide 20 mmol/L (22-30); Chloride 106 mmol/L (98-107); Estimated Glomerular Filt Rate > 60; Glucose 93 mg/dL (65-110); Potassium 4.7 mmol/L (3.4-5.0); Sodium 135 mmol/L (137-145)
== END 2021-01-16 11:53 | disposition home or self-care (01) ==
LOC: ANHBWCLAB 11:53
PROVIDERS: PCP Family Medicine; Visit Provider Family Medicine
DX: E87.5 Hyperkalemia (principal); R79.89 Other specified abnormal findings of blood chemistry
CPT/HCPCS: 36415; 80048; 85025

== ENCOUNTER 2021-06-13 09:50 | Emergency (ER) | payer BC, SELFPAY ==
--- NOTE | 2021-06-13 09:54 | ED.URI ---
HPI - URI/Sore Throat General Chief Complaint: Upper Respiratory Infection Stated Complaint: congestion / sinus Time Seen by Provider: 06/13/21 09:54 Source: patient and RN notes reviewed History of Present Illness HPI Narrative: Patient is a 35-year-old female who presents the urgent care with complaints of congestion, sinus pain, postnasal drainage, sneezing and dry cough. Patient states that it started last week, cleared up and then worsened again 2 days ago. Patient also reports of a sore throat. Denies of any fever, chills, nausea or vomiting. Denies of any recent exposures to illness. Patient has been taking Claritin, Tylenol and severe sinus medication. No other acute complaints. No acute distress noted. Patient aware of the plan of care. Some parts of this dictation were generated by voice recognition software and may contain typographical and/or grammatical inaccuracies. Related Data Home Medications Medication Instructions Recorded Confirmed norethindrone-e.estradiol-iron 1 tablet PO DAILY 11/27/20 06/13/21 [Aurovela 24 Fe] Allergies Allergy/AdvReac Type Severity Reaction Status Date / Time No Known Allergies Allergy Verified 06/13/21 10:05 Review of Systems Review of Systems: CONSTITUTIONAL: Denies fever, chills, or sweats. EYES: Denies visual changes, redness, or discharge. ENT: Reports of postnasal drainage, congestion, sneezing, sore throat CARDIOVASCULAR: Denies chest pain, palpitations, or edema. RESPIRATORY: Reports of cough without dyspnea GASTROINTESTINAL: Denies abdominal pain, nausea, vomiting, or diarrhea. GENITOURINARY: Denies dysuria or hematuria. SKIN: Denies rash or itching. MUSCULOSKELETAL: Denies back pain, joint pain, or myalgia. NEUROLOGIC: Denies headache, numbness, or weakness. All other systems reviewed are negative, except as documented in HPI. [facility] Past Medical History Medical History No significant medical problems Surgical History Surgical History History of eye surgery X2 as a child for strabismus. Family History Family History Other Lupus Father Diabetes mellitus Hypertension Mother Neoplasm of back Social History Social History Social History: Surrogate decision maker: Juan Dang, spouse. Code status: Full code. Smoking status: Former smoker Tobacco type: cigarettes Alcohol intake: never Substance use: former Substance use type: opiates Last use: 11 years Additional living arrangements comments: The patient lives with her and 2 children in [place]. 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 Comments At the time of my signature, I reviewed and agree with the nursing past medical, surgical, social, and family history. There is no relevant family history pertinent to the patient complaint. Exam Narrative: GENERAL: This is a well-nourished, well-developed patient, in no apparent distress. HEAD: normocephalic, atraumatic. EYES: PERRL. Sclera clear/white. Vision is grossly intact. EARS: External ears normal, auditory canals clear and without drainage, TMs normal without perforation. Hearing grossly intact. NOSE: External nose normal with no obvious nasal discharge, nares without redness, clear rhinorrhea. THROAT: Mucous membranes moist, posterior pharynx clear. Moderate postnasal drainage NECK: Neck supple, non-tender without lymphadenopathy CARDIOVASCULAR: Regular rate and rhythm without murmurs, gallops, or rubs. RESPIRATORY: Clear to auscultation. Breath sounds equal bilaterally. No wheezes, rales, or rhonchi. SKIN: warm, intact with no suspicious lesions or rash, good texture and turgor. NEURO: awake, alert, and oriented to person, place and time. The
[2021-06-13 09:56] VITALS: BP 107/74; PULSE 76; RESP 16; TEMP 37.2; O2SAT 100
== END 2021-06-13 10:30 | disposition home or self-care (01) ==
PROVIDERS: Emergency Provider Nurse Practitioner Family; PCP Family Medicine
DX: J32.9 Chronic sinusitis, unspecified (principal); Z87.891 Personal history of nicotine dependence
CPT/HCPCS: 87081; 87880; 99213; G0463

== ENCOUNTER 2022-03-15 13:13 | Emergency (ER) | payer BC, SELFPAY ==
[2022-03-15 13:16] VITALS: BP 121/85; PULSE 111; RESP 16; TEMP 37; O2SAT 100
[2022-03-15 13:23] VITALS: BP 121/85; PULSE 111; RESP 16; TEMP 37; O2SAT 100
--- NOTE | 2022-03-15 13:24 | ED.URI ---
HPI - URI/Sore Throat General Chief Complaint: Upper Respiratory Infection Stated Complaint: sick for a week Time Seen by Provider: 03/15/22 13:15 Source: patient and RN notes reviewed History of Present Illness HPI Narrative: Patient is a 36-year-old female who presents to urgent care with complaints of nasal congestion, cough and postnasal drainage. Patient states has been ongoing since last Tuesday and she has been taking Mucinex and Claritin. Denies any fever, nausea. States that everyone in her house was positive for COVID last week but her rapid test was negative. Patient states that her symptoms are also GI related. No other acute complaints. No acute distress noted. Patient aware of the plan of care. Some parts of this dictation were generated by voice recognition software and may contain typographical and/or grammatical inaccuracies. Related Data Home Medications Medication Instructions Recorded Confirmed norethindrone 1 mg-ethinyl 1 tablet PO DAILY 03/15/22 03/15/22 estradiol 20 mcg (24)-iron 75 mg (4) tablet () Allergies Allergy/AdvReac Type Severity Reaction Status Date / Time No Known Allergies Allergy Verified 03/15/22 13:22 Review of Systems Review of Systems: CONSTITUTIONAL: Denies fever, chills, or sweats. EYES: Denies visual changes, redness, or discharge. ENT: Reports nasal congestion, rhinorrhea, postnasal drainage CARDIOVASCULAR: Denies chest pain, palpitations, or edema. RESPIRATORY: Reports of cough without dyspnea GASTROINTESTINAL: Denies abdominal pain, nausea, vomiting, or diarrhea. GENITOURINARY: Denies dysuria or hematuria. SKIN: Denies rash or itching. MUSCULOSKELETAL: Denies back pain, joint pain, or myalgia. NEUROLOGIC: Denies headache, numbness, or weakness. All other systems reviewed are negative, except as documented in HPI. [facility] Past Medical History Medical History No significant medical problems Surgical History Surgical History History of eye surgery X2 as a child for strabismus. Family History Family History Other Lupus Father Diabetes mellitus Hypertension Mother Neoplasm of back Social History Social History Social History: Surrogate decision maker: Juan Dang, spouse. Code status: Full code. Smoking status: Former smoker Tobacco type: cigarettes Alcohol intake: never Substance use: former Substance use type: opiates Last use: 11 years Living arrangements: with family Additional living arrangements comments: The patient lives with her and 2 children in [place]. 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 Comments At the time of my signature, I reviewed and agree with the nursing past medical, surgical, social, and family history. There is no relevant family history pertinent to the patient complaint. Exam Narrative: GENERAL: This is a well-nourished, well-developed patient, in no apparent distress. HEAD: normocephalic, atraumatic. EYES: PERRL. Sclera clear/white. Vision is grossly intact. EARS: External ears normal, auditory canals clear and without drainage, mild bilateral eustachian tube dysfunction, TMs normal without perforation. Hearing grossly intact. NOSE: External nose normal with no obvious nasal discharge. Bilateral erythema nares with clear yellow rhinorrhea. Notable nasal congestion THROAT: Mucous membranes moist, posterior pharynx clear. Moderate postnasal drainage NECK: Neck supple, non-tender without lymphadenopathy CARDIOVASCULAR: Regular rate and rhythm without murmurs, gallops, or rubs. RESPIRATORY: Clear to auscultation. Breath sounds equal bilaterally. No wheezes, rales, or rhonchi. SKIN: warm, intact with no suspiciou
== END 2022-03-15 13:37 | disposition home or self-care (01) ==
PROVIDERS: Emergency Provider Nurse Practitioner Family; PCP Family Medicine
DX: J32.9 Chronic sinusitis, unspecified (principal); Z87.891 Personal history of nicotine dependence
CPT/HCPCS: 99213; G0463

== ENCOUNTER 2022-03-19 11:20 | Emergency (ER) | payer BC, SELFPAY ==
[2022-03-19 11:33] VITALS: BP 116/61; PULSE 76; RESP 20; TEMP 36.7; O2SAT 100
[2022-03-19 11:35] VITALS: BP 116/61; PULSE 76; RESP 20; TEMP 36.7; O2SAT 100
--- NOTE | 2022-03-19 12:12 | ED.EAR ---
HPI - Ear Problem General Chief complaint: Ear Stated complaint: Left ear pain Source: patient, RN notes reviewed and old records reviewed History of Present Illness HPI Narrative: 36-year-old female presents to urgent care with complaints of left ear pain since yesterday. Patient states she was here on 03/15/2022 and diagnosed with sinusitis and given Flonase and steroids. Pt states her congestion is not improved. Pt denies any fevers, chills, SOB, vomiting, or chest pain. Some parts of this dictation were generated by voice recognition software and may contain typographical and/or grammatical inaccuracies. Related Data Home Medications Medication Instructions Recorded Confirmed norethindrone 1 mg-ethinyl 1 tablet PO DAILY 03/15/22 03/19/22 estradiol 20 mcg (24)-iron 75 mg (4) tablet () Allergies Allergy/AdvReac Type Severity Reaction Status Date / Time No Known Allergies Allergy Verified 03/19/22 11:34 Review of Systems Review of Systems: CONSTITUTIONAL: Denies fever, chills, or sweats. EYES: Denies visual changes, redness, or discharge. ENT: Reports congestion and left ear pain. CARDIOVASCULAR: Denies chest pain, palpitations, or edema. RESPIRATORY: Denies cough or dyspnea. GASTROINTESTINAL: Denies abdominal pain, nausea, vomiting, or diarrhea. GENITOURINARY: Denies dysuria or hematuria. SKIN: Denies rash or itching. MUSCULOSKELETAL: Denies back pain, joint pain, or myalgia. [facility] Past Medical History Medical History No significant medical problems Surgical History Surgical History History of eye surgery X2 as a child for strabismus. Family History Family History Other Lupus Father Diabetes mellitus Hypertension Mother Neoplasm of back Social History Social History Social History: Surrogate decision maker: Juan Tom Green, spouse. Code status: Full code. Smoking status: Former smoker Tobacco type: cigarettes Alcohol intake: never Substance use: former Substance use type: opiates Last use: 11 years Living arrangements: with family Additional living arrangements comments: The patient lives with her and 2 children in [place]. 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 Comments At the time of my signature, I reviewed and agree with the nursing past medical, surgical, social, and family history. There is no relevant family history pertinent to the patient complaint. Exam Narrative: GENERAL: This is a well-nourished, well-developed patient, in no apparent distress. HEAD: normocephalic, atraumatic. EYES: PERRL. Sclera clear/white. Vision is grossly intact. EARS: Right TM is clear and pearly neff. Left TM is erythemic and bulging. NOSE: Congested THROAT: Mucous membranes moist, posterior pharynx clear. NECK: Neck supple, non-tender without lymphadenopathy, masses or thyromegaly. CARDIOVASCULAR: Regular rate and rhythm without murmurs, gallops, or rubs. RESPIRATORY: Clear to auscultation. Breath sounds equal bilaterally. No wheezes, rales, or rhonchi. GASTROINTESTINAL: Abdomen soft, non-tender, nondistended. Bowel sounds are active. No hepato-splenomegaly, or palpable masses. No guarding. SKIN: warm, intact with no suspicious lesions or rash, good texture and turgor. NEURO: awake, alert, and oriented to person, place and time. There were no obvious focal neurologic abnormalities. Course Course Level of Care: Express Care Visit Vital Signs Vital signs: Vital Signs Temperature 98.1 F 03/19/22 11:33 Pulse Rate 76 03/19/22 11:33 Respiratory Rate 20 03/19/22 11:33 Blood Pressure 116/61 03/19/22 11:33 Pulse Oximetry 100 03/19/22 11:33 Oxygen Delivery Room Air
== END 2022-03-19 12:18 | disposition home or self-care (01) ==
PROVIDERS: Emergency Provider Nurse Practitioner Family; PCP Family Medicine
DX: H66.92 Otitis media, unspecified, left ear (principal); J01.00 Acute maxillary sinusitis, unspecified; Z87.891 Personal history of nicotine dependence
CPT/HCPCS: 99213; G0463

== ENCOUNTER 2022-10-24 09:55 | Emergency (ER) | payer BC, SELFPAY ==
[2022-10-24 10:08] VITALS: BP 129/89; PULSE 87; RESP 16; TEMP 37.3; O2SAT 100
--- NOTE | 2022-10-24 10:29 | ED.GENADULT ---
HPI - General Adult General Chief complaint: Upper Respiratory Infection Stated complaint: throat/fever/aches Source: patient Mode of arrival: ambulatory Limitations: no limitations History of Present Illness HPI narrative: Patient presents for evaluation of sick symptoms for last 4 days. Symptoms include cough, runny nose, sore throat, and a feeling of wetness in both ears. No chills, nausea, vomiting or diarrhea. Her daughter recently had COVID. She reports some low back pain consistent with pain previously experienced with urinary tract infections. Denies urinary symptoms otherwise. She is a current everyday smoker. Related Data Home Medications Medication Instructions Recorded Confirmed norethindrone 1 mg-ethinyl 1 tablet PO DAILY 03/15/22 03/19/22 estradiol 20 mcg (24)-iron 75 mg (4) tablet () Allergies Allergy/AdvReac Type Severity Reaction Status Date / Time No Known Allergies Allergy Verified 03/19/22 11:34 Review of Systems Review of Systems: CONSTITUTIONAL: Denies fever, chills, or sweats. EYES: Denies visual changes, redness, or discharge. ENT: Reports sore throat, runny nose and a feeling of wetness in both ears. CARDIOVASCULAR: Denies chest pain, palpitations, or edema. RESPIRATORY: Reports cough. Denies SOB GASTROINTESTINAL: Denies abdominal pain, nausea, vomiting, or diarrhea. GENITOURINARY: Denies dysuria or hematuria. SKIN: Denies rash or itching. MUSCULOSKELETAL: Reports low back pain. Denies joint pain, or myalgia. NEUROLOGIC: Denies headache, numbness, dizziness, or weakness. PSYCHIATRIC: Denies anxiety or depression. [facility] Past Medical History Medical History (Updated 10/24/22 @ 10:39 by YSABEL Lopez, SHEA) No significant medical problems Surgical History Surgical History History of eye surgery X2 as a child for strabismus. Family History Family History Other Lupus Father Diabetes mellitus Hypertension Mother Neoplasm of back Social History Social History Social History: Surrogate decision maker: Juan Dang, spouse. Code status: Full code. Smoking packs per day: 0.1 Smoking cigarettes per day: 2.0 Smoking status: Current every day smoker Tobacco type: cigarettes Alcohol intake: never Substance use: former Substance use type: opiates Last use: 11 years Living arrangements: with family Additional living arrangements comments: The patient lives with her and 2 children in [place]. 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 Gender identity (if verbalized by the patient): Female Spiritual care concerns: No Exam Narrative: GENERAL: Well-appearing, well-nourished, and in no acute distress. HEAD: Normocephalic, atraumatic. EYES: PERRLA and EOMI. ENT: Nares clear, no rhinorrhea or epistaxis. Mucous membranes moist. There is posterior pharyngeal erythema without exudate. Uvula is midline. Bilateral TMs pearly neff nonbulging NECK: Supple. No adenopathy or masses. No carotid bruits or JVD CHEST: Clear to auscultation. No respiratory distress. No wheezes rales or rhonchi HEART: Regular rate and rhythm. No murmur heard. Normal peripheral pulses. ABDOMEN: Soft, nontender, nondistended, normal active bowel sounds. EXTREMITIES: Normal range of motion. No edema. SKIN: Warm, dry, no rash. NEURO: No focal deficits. Alert and oriented x3. PSYCH: Normal mood and affect. Course Course Emergency Course: This is a 37-year-old female who presented for evaluation of sick symptoms. Strep and COVID were positive. Will treat with amoxicillin. Increase hydration. [id number] agents for symptom management. Quarantine in alignment with CDC recommendations. Follow up with milla
== END 2022-10-24 10:35 | disposition home or self-care (01) ==
PROVIDERS: Emergency Provider Nurse Practitioner
DX: J02.0 Streptococcal pharyngitis (principal); U07.1 COVID-19; F17.210 Nicotine dependence, cigarettes, uncomplicated
CPT/HCPCS: 81003; 87426; 87880; 99213; C9803; G0463

== ENCOUNTER 2023-01-30 09:40 | Emergency (ER) | payer BC, SELFPAY ==
[2023-01-30 09:52] VITALS: BP 108/75; PULSE 110; RESP 16; TEMP 36.9; O2SAT 100
--- NOTE | 2023-01-30 09:53 | ED.URI ---
HPI - URI/Sore Throat General Chief Complaint: Upper Respiratory Infection Stated Complaint: sinus/ear inf History of Present Illness HPI Narrative: Patient presents with left ear pain. Patient denies any drainage from the ear but has been fighting nasal congestion for the past couple days. Patient states she is taking Sudafed for her symptoms. Patient states she blew her nose last night and had pain to her left ear. No drainage from the ear no fever. Related Data Home Medications Medication Instructions Recorded Confirmed norethindrone 1 mg-ethinyl 1 tablet PO DAILY 03/15/22 03/19/22 estradiol 20 mcg (24)-iron 75 mg (4) tablet () Allergies Allergy/AdvReac Type Severity Reaction Status Date / Time No Known Allergies Allergy Verified 03/19/22 11:34 Review of Systems Review of Systems: CONSTITUTIONAL: Denies chills, or sweats. Reports fever and generalized body aches EYES: Denies visual changes, redness, or discharge. ENT: Denies otalgia. Reports nasal congestion runny nose and sore throat CARDIOVASCULAR: Denies chest pain, palpitations, or edema. RESPIRATORY: Denies dyspnea. Reports occasional cough GASTROINTESTINAL: Denies abdominal pain, nausea, vomiting, or diarrhea. GENITOURINARY: Denies dysuria or hematuria. SKIN: Denies rash or itching. MUSCULOSKELETAL: Denies back pain, joint pain, or myalgia. Reports generalized body aches NEUROLOGIC: Denies headache, numbness, or weakness. PSYCHIATRIC: Denies anxiety or depression. [facility] Past Medical History Medical History (Updated 01/30/23 @ 09:57 by YSABEL Robledo) No significant medical problems Surgical History Surgical History History of eye surgery X2 as a child for strabismus. Family History Family History Other Lupus Father Diabetes mellitus Hypertension Mother Neoplasm of back Social History Social History Social History: Surrogate decision maker: Juan Dang, spouse. Code status: Full code. Smoking packs per day: 0.1 Smoking cigarettes per day: 2.0 Smoking status: Current every day smoker Tobacco type: cigarettes Alcohol intake: never Substance use: former Substance use type: opiates Last use: 11 years Living arrangements: with family Additional living arrangements comments: The patient lives with her and 2 children in [place]. 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 Gender identity (if verbalized by the patient): Female Spiritual care concerns: No Comments At time of signature, agree with nursing past medical, surgical, social and family history. There is no relevant family history pertinent to the presenting complaint Exam Narrative: The patient is a well-developed, well-nourished in no acute distress. SKIN: Skin is warm and dry without erythema, swelling or exudate. There is good turgor. No tenting. HEAD: Atraumatic. Normocephalic. No temporal or scalp tenderness. EYES: Moist and bright. Sclera and conjunctivae normal. No discharge. PERRLA. Extraocular motions intact. Gross visual acuity intact. EARS: Pinna is normal shape and contour. Clear external auditory canals. TM pearly perez with good cone of light, no erythema or suppuration. Bilateral cerumen noted no gross hearing deficit. NOSE: pink, moist mucosa with good air movement. Clear rhinorrhea without nasal flaring. Septum midline. Mouth: moist mucous membranes. THROAT; mild erythema noted to posterior oropharynx with moderate postnasal drainage. Without exudate or ulceration.. Uvula midline. Normal movement of soft palate. NECK: Supple and nontender with full range of motion without discomfort. No meningeal signs. LUNGS: Equal and bilateral breath sounds without wheezes, rales or
== END 2023-01-30 10:07 | disposition home or self-care (01) ==
PROVIDERS: Emergency Provider Nurse Practitioner Family
DX: H69.92 Unspecified Eustachian tube disorder, left ear (principal); J06.9 Acute upper respiratory infection, unspecified; F17.210 Nicotine dependence, cigarettes, uncomplicated
CPT/HCPCS: 99211; G0463

== ENCOUNTER 2023-06-18 09:59 | Emergency (ER) | payer BC, SELFPAY ==
[2023-06-18 10:09] VITALS: BP 119/82; PULSE 98; RESP 18; TEMP 37.1; O2SAT 100
--- NOTE | 2023-06-18 10:20 | ED.URI ---
HPI - URI/Sore Throat General Chief Complaint: Upper Respiratory Infection Stated Complaint: Chest / head congestion Time Seen by Provider: 06/18/23 10:20 Source: patient, RN notes reviewed and old records reviewed Mode of arrival: ambulatory Limitations: no limitations History of Present Illness HPI Narrative: 37 year old female presents to [facility] care with complaints of 6 day history of non productive cough, sore throat, head congestion and nasal drainage. Patient reports no shortness of breath with respirations even and nonlabored with SAO2 100% on room air and no tachypnea noted. Patient reports no known fevers chills or sweats or any body aches. She states that she has been taking Sudafed and Theraflu for her symptoms with some improvement in her head congestion. MD elicited complaint: cough, sore throat, rhinorrhea and nasal congestion Onset (ago): day(s) (6) Consistency: constant Pain scale (0-10): 6 Able to tolerate fluids by mouth: Yes Treatments prior to arrival: other (Sudafed and Theraflu) Related Data Home Medications Medication Instructions Recorded Confirmed norethindrone 1 mg-ethinyl 1 tablet PO DAILY 03/15/22 06/18/23 estradiol 20 mcg (24)-iron 75 mg (4) tablet () Allergies Allergy/AdvReac Type Severity Reaction Status Date / Time No Known Allergies Allergy Verified 06/18/23 10:18 Review of Systems Review of Systems: CONSTITUTIONAL: Denies malaise, chills, sweats, or fever. EYES: Denies visual changes, redness, or discharge. ENT: Reports rhinorrhea, congestion, sinus pain, no otalgia and positive for sore throat. CARDIOVASCULAR: Denies chest pain, palpitations, or edema. RESPIRATORY: Reports cough.? Denies dyspnea. GASTROINTESTINAL: Denies abdominal pain, nausea, vomiting, diarrhea SKIN: Denies rash or itching. MUSCULOSKELETAL: Denies myalgia. NEUROLOGIC: Denies headache. All systems reviewed & are unremarkable except as noted in HPI and below PMFSH Past Medical History Medical History (Updated 06/20/23 @ 09:22 by Mohini Cottrell NP) Anemia Pyelonephritis UTI (urinary tract infection) Surgical History Surgical History History of eye surgery X2 as a child for strabismus. Family History Family History Other Lupus Father Diabetes mellitus Hypertension Mother Neoplasm of back Social History Social History Social History: Surrogate decision maker: Juan Dang, spouse. Code status: Full code. Smoking packs per day: 0.1 Smoking cigarettes per day: 2.0 Smoking status: Current every day smoker Tobacco type: cigarettes Alcohol intake: never Substance use: former Substance use type: opiates Last use: 11 years Living arrangements: with family Additional living arrangements comments: The patient lives with her and 2 children in [place]. 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 Gender identity (if verbalized by the patient): Female Spiritual care concerns: No Comments At time of signature, agree with nursing past medical, surgical, social and family history. There is no relevant family history pertinent to the presenting complaint Exam Narrative: GENERAL: Well-appearing, well-nourished, and in no acute distress. HEAD: Normocephalic EYES: PERRLA, conjunctivae clear ENT: Nares clear, turbinates edematous and erythematous, clear discharge. Mucous membranes moist. TM pearly neff with dull light reflex bilaterally; no tragal tenderness. Oropharynx erythematous without lesions. Tonsils not enlarged and without exudate, no drooling, no hoarseness, no trismus, uvula midline.post nasal drainage present NECK: Supple. No lymphadenopathy CHEST: Clear to auscultation, breath sounds equal. No wheezing,
== END 2023-06-18 11:00 | disposition home or self-care (01) ==
PROVIDERS: Emergency Provider Registered Nurse
DX: J06.9 Acute upper respiratory infection, unspecified (principal); F17.210 Nicotine dependence, cigarettes, uncomplicated
CPT/HCPCS: 87081; 87880; 99213; G0463

== ENCOUNTER 2023-07-02 12:19 | Emergency (ER) | payer BC, SELFPAY ==
--- NOTE | 2023-07-02 12:27 | ED.URI ---
HPI - URI/Sore Throat General Chief Complaint: Upper Respiratory Infection Stated Complaint: Congestion/cough Time Seen by Provider: 07/02/23 12:27 Source: patient Mode of arrival: ambulatory Limitations: no limitations History of Present Illness HPI Narrative: 37-year-old female presents with complaint of sinus congestion, sinus pressure, postnasal drainage, nasal congestion coughing the past 2 weeks. Taking Claritin daily. Using [id number] cough suppressant. Was given Medrol Dosepak last week at her urgent care visit but did not help. Afebrile. Has appointment with her primary care physician in 2 weeks. All systems reviewed and negative except as noted above. Related Data Home Medications Medication Instructions Recorded Confirmed norethindrone 1 mg-ethinyl 1 tablet PO DAILY 03/15/22 06/18/23 estradiol 20 mcg (24)-iron 75 mg (4) tablet () Allergies Allergy/AdvReac Type Severity Reaction Status Date / Time No Known Allergies Allergy Verified 06/18/23 10:18 Review of Systems Review of Systems: CONSTITUTIONAL: Denies fever, chills, or sweats. EYES: Denies visual changes, redness, or discharge. ENT: Reports rhinorrhea, congestion, sinus pressure. Denies sore throat, or otalgia. CARDIOVASCULAR: Denies chest pain, palpitations, or edema. RESPIRATORY: Reports cough. Denies dyspnea. GASTROINTESTINAL: Denies abdominal pain, nausea, vomiting, or diarrhea. GENITOURINARY: Denies dysuria or hematuria. SKIN: Denies rash or itching. MUSCULOSKELETAL: Denies back pain, joint pain, or myalgia. NEUROLOGIC: Denies headache, numbness, or weakness. PSYCHIATRIC: Denies anxiety or depression. All other systems reviewed are negative, except as documented in HPI. [facility] Past Medical History Medical History (Updated 07/02/23 @ 12:37 by Kayla Ballard NP) Anemia Pyelonephritis UTI (urinary tract infection) Surgical History Surgical History History of eye surgery X2 as a child for strabismus. Family History Family History Other Lupus Father Diabetes mellitus Hypertension Mother Neoplasm of back Social History Social History Social History: Surrogate decision maker: Juan Dang, spouse. Code status: Full code. Smoking packs per day: 0.1 Smoking cigarettes per day: 2.0 Smoking status: Current every day smoker Tobacco type: cigarettes Alcohol intake: never Substance use: former Substance use type: opiates Last use: 11 years Living arrangements: with family Additional living arrangements comments: The patient lives with her and 2 children in [place]. 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 Gender identity (if verbalized by the patient): Female Spiritual care concerns: No Comments At time of signature, agree with nursing past medical, surgical, social and family history. There is no relevant family history pertinent to the presenting complaint. Exam Narrative: GENERAL: This is a well-nourished, well-developed patient, in no apparent distress. HEAD: normocephalic, atraumatic. EYES: PERRL. Sclera clear/white. Vision is grossly intact. EARS: External ears normal, auditory canals clear and without drainage, TMs normal without perforation. Hearing grossly intact. NOSE: External nose normal with congested, purulent nasal drainage, erythema and swelling to bilateral nares. Bilateral frontal maxillary tenderness on palpation. THROAT: Mucous membranes moist, postnasal drainage with erythema NECK: Neck supple, non-tender without lymphadenopathy, masses or thyromegaly. CARDIOVASCULAR: Regular rate and rhythm without murmurs, gallops, or rubs. RESPIRATORY: Clear to auscultation. Breath sounds equal bilaterally. No wheezes, rales, or rhonchi.
[2023-07-02 12:29] VITALS: BP 97/66; PULSE 97; RESP 16; TEMP 36.8; O2SAT 100
== END 2023-07-02 12:43 | disposition home or self-care (01) ==
PROVIDERS: Emergency Provider Nurse Practitioner Family
DX: J01.90 Acute sinusitis, unspecified (principal); F17.210 Nicotine dependence, cigarettes, uncomplicated
CPT/HCPCS: 99213; G0463

== ENCOUNTER 2023-11-08 15:17 | Emergency (ER) | payer BC, SELFPAY ==
[2023-11-08 15:31] VITALS: BP 95/64; PULSE 86; RESP 16; TEMP 36.7; O2SAT 100
[2023-11-08 15:33] VITALS: BP 95/64; PULSE 86; RESP 16; TEMP 36.7; O2SAT 100
--- NOTE | 2023-11-08 16:14 | ED.GENADULT ---
HPI - General Adult General Chief complaint: Upper Respiratory Infection Stated complaint: Fever/Body Aches Source: patient Mode of arrival: ambulatory Limitations: no limitations History of Present Illness HPI narrative: Patient presents for evaluation of body aches and fever. Symptom onset two days ago. She denies any cough, shortness of breath, sore throat, otalgia, nausea, vomiting, diarrhea. She states in the past when she has had the symptoms she was septic secondary to a urinary tract infection. She denies any urinary symptoms at the present time but states she did not have urinary symptoms when she had sepsis 2/2 UTI. Related Data Home Medications Medication Instructions Recorded Confirmed No Home Medications 11/08/23 11/08/23 Allergies Allergy/AdvReac Type Severity Reaction Status Date / Time No Known Allergies Allergy Verified 06/18/23 10:18 Review of Systems Review of Systems: CONSTITUTIONAL: Reports fever. Denies chills, or sweats. EYES: Denies visual changes, redness, or discharge. ENT: Denies rhinorrhea, congestion, sore throat, or otalgia. CARDIOVASCULAR: Denies chest pain, palpitations, or edema. RESPIRATORY: Denies cough or dyspnea. GASTROINTESTINAL: Denies abdominal pain, nausea, vomiting, or diarrhea. GENITOURINARY: Denies dysuria or hematuria. SKIN: Denies rash or itching. MUSCULOSKELETAL: Reports generalized body aches NEUROLOGIC: Denies headache, numbness, dizziness, or weakness. PSYCHIATRIC: Denies anxiety or depression. [facility] Past Medical History Medical History Anemia Pyelonephritis UTI (urinary tract infection) Surgical History Surgical History History of eye surgery X2 as a child for strabismus. Family History Family History Other Lupus Father Diabetes mellitus Hypertension Mother Neoplasm of back Social History Social History Social History: Surrogate decision maker: Juan Dang, spouse. Code status: Full code. Smoking packs per day: 0.1 Smoking cigarettes per day: 2.0 Smoking status: Current every day smoker Tobacco type: cigarettes Alcohol intake: never Substance use: former Substance use type: opiates Last use: 11 years Living arrangements: with family Additional living arrangements comments: The patient lives with her and 2 children in [place]. 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 Gender identity (if verbalized by the patient): Female Spiritual care concerns: No Exam Narrative: GENERAL: Well-appearing, well-nourished, and in no acute distress. HEAD: Normocephalic, atraumatic. EYES: PERRLA and EOMI. ENT: Nares clear, no rhinorrhea or epistaxis. Mucous membranes moist. Oropharynx without tonsillar hypertrophy exudate or other lesions. Bilateral TMs pearly neff nonbulging NECK: Supple. No adenopathy or masses. No carotid bruits or JVD CHEST: Clear to auscultation. No respiratory distress. No wheezes rales or rhonchi HEART: Regular rate and rhythm. No murmur heard. Normal peripheral pulses. ABDOMEN: Soft, nontender, nondistended, normal active bowel sounds. EXTREMITIES: Normal range of motion. No edema. SKIN: Warm, dry, no rash. NEURO: No focal deficits. Alert and oriented x3. PSYCH: Normal mood and affect. Course Course Emergency Course: This is a 38-year-old female who presented for evaluation of fever generalized body aches. She was concerned that she had a UTI based upon similar symptoms experienced in the past with UTI. There was no evidence of infection in her urine today. I did offer to check her for COVID and flu. She declined. She states if she has a viral illness she will simply take OTC agents
[2023-11-08 16:25] LABS: EDUAAPPEAR Clear; EDUABILI Negative (Negative); EDUABLOOD 2+ (Negative); EDUACOLOR1 Yellow; EDUAGLUCOSE Negative (Negative); EDUAKETONE Negative (Negative); EDUALEUKO Negative (Negative); EDUANITRATE Negative (Negative); EDUAPROTEIN Negative (Negative); EDUAUROBILI 0.2
== END 2023-11-08 16:31 | disposition home or self-care (01) ==
PROVIDERS: Emergency Provider Nurse Practitioner
DX: B34.9 Viral infection, unspecified (principal); F17.210 Nicotine dependence, cigarettes, uncomplicated
CPT/HCPCS: 81003; 99212; G0463

== ENCOUNTER 2024-03-25 10:02 | Emergency (ER) | payer BC, SELFPAY ==
[2024-03-25 10:08] VITALS: BP 123/83; PULSE 105; RESP 20; TEMP 37; O2SAT 100
--- NOTE | 2024-03-25 10:20 | ED.URI ---
HPI - URI/Sore Throat General Chief Complaint: Upper Respiratory Infection Stated Complaint: head and ear pressure Time Seen by Provider: 03/25/24 10:20 Source: patient, RN notes reviewed and old records reviewed Mode of arrival: ambulatory Limitations: no limitations History of Present Illness HPI Narrative: patient presents with complaints runny nose, sinus pain, sinus pressure, stuffy sensation in the ears. She reports that symptoms began last Tuesday. She has tried multiple [id number]-btg-rixopag medications with minimal results. She denies any fevers, does state that she is little more tired than normal. She denies any injury or trauma. She voices no other concerns or complaints at this time. She is not in any obvious distress Related Data Allergies Allergy/AdvReac Type Severity Reaction Status Date / Time No Known Allergies Allergy Verified 06/18/23 10:18 Review of Systems Review of Systems: All systems reviewed & are unremarkable except as noted in HPI and below Constitutional: Constitutional: Reports as per HPI, Reports no additional constitutional complaints and Reports headache(s) ENT: Reports system reviewed and no additional complaints, except as documented, Reports otalgia, Reports nasal congestion, Reports nasal discharge, Reports sinus pain and Reports sinus pressure Cardiovascular: Cardiovascular: Reports no additional cardiovascular complaints Respiratory: Respiratory: Reports no additional respiratory complaints Gastrointestinal: Gastrointestinal: Reports no additional gastrointestinal complaints PMFSH Past Medical History Medical History UTI (urinary tract infection) Anemia Pyelonephritis Surgical History Surgical History History of eye surgery X2 as a child for strabismus. Family History Family History Other Lupus Father Diabetes mellitus Hypertension Mother Neoplasm of back Social History Social History Social History: Surrogate decision maker: Juan Dang, spouse. Code status: Full code. Smoking packs per day: 0.1 Smoking cigarettes per day: 2.0 Smoking status: Current every day smoker Tobacco type: cigarettes Alcohol intake: never Substance use: former Substance use type: opiates Last use: 11 years Living arrangements: with family Additional living arrangements comments: The patient lives with her and 2 children in [place]. 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 Gender identity (if verbalized by the patient): Female Spiritual care concerns: No Comments At the time of my signature, I reviewed and agree with the nursing past medical, surgical, social, and family history. There is no relevant family history pertinent to the patient complaint. Exam Const: General: cooperative, no acute distress, alert and awake Orientation/consciousness: oriented to person, oriented to place and oriented to time HENMT: Head: normal to inspection Ears: TM abnormal dull bilateral and with fluid behind the TM bilateral Mouth: Yes moist mucous membranes Throat: postnasal drainage Resp: Effort & Inspection: normal respiratory effort and able to speak in complete sentences Auscultation: clear to auscultation bilaterally, no crackles, no rales, no rhonchi and no wheezes Cardio: Palpation: normal PMI Rate: regular rate Rhythm: regular rhythm Heart sounds: S1 normal heart sound present and S2 normal heart sound present Neuro: General: oriented to person, oriented to place and oriented to time Cranial nerves: Yes CN's II-XII intact bilaterally Psych: Appearance: grossly normal Thought process: Normal thought process present Insight: Good insight present (Psych) Judgement: Good judgement present (Psych) Course Course Level of Care: Express Care Visit Vital Signs Vital signs: Reviewed MDM - URI/Sore Throat MDM Narrative Medical decision making narrative: symptoms appear to be viral in origin. Patient has tried multiple [id number]-[id number]-[id number] remedies to treat her symptoms, still is feeling pretty unwell. Start prednisone burst. She is encouraged to follow-up with primary care provider. Emergency department for new or worse symptoms. Continue supportive care measures at home. Discharge instructions reviewed with patient, as well as provided in writing per nursing staff. The instructions also include specific and strict return/GO TO THE ER as well as f/u information. All questions have been answered, and the patient deny any further questions with discharge and discharge plan. Some parts of this dictation were generated by voice recognition software and may contain typographical and/or grammatical inaccuracies. Differential Diagnosis Differential diagnosis: Likely upper respiratory infection, otitis media and viral infection Medical Records Attestation: I reviewed the patient's medical records. Discharge Plan Discharge Clinical Impression: Upper respiratory infection Qualifiers: URI type: unspecified viral URI Qualified Code(s): J06.9 - Acute upper respiratory infection, unspecified Patient Disposition: Home, Self-Care Condition: Stable Instructions: Antibiotic Form, Cold Symptoms (ED) Additional Instructions: take medications as prescribed. Follow with primary care provider. Emergency department for new or worse symptoms Patient Language: Mauritanian Prescriptions: New prednisone 50 mg tablet 50 mg PO DAILY Qty: 5 0RF Follow-up/Referrals: PHYSICIAN,AUTO LEASING MANAGER [Primary Care Provider] - 2 Weeks Time of Disposition: 10:46
== END 2024-03-25 10:52 | disposition home or self-care (01) ==
PROVIDERS: Emergency Provider Nurse Practitioner Family
DX: J06.9 Acute upper respiratory infection, unspecified (principal); F17.210 Nicotine dependence, cigarettes, uncomplicated
CPT/HCPCS: 99213; G0463

== ENCOUNTER 2024-04-21 14:15 | Emergency (ER) | payer BC, SELFPAY ==
--- NOTE | ~2024-04-21 | XR_ITS ---
XR chest 2V Ordering provider: YSABEL Lopez History: 38 years Female with . cough . Comparison: None. FINDINGS: MEDIASTINUM: The cardiac silhouette is not enlarged. LUNGS: No effusions or pneumothorax. Minimal opacification the left lung base medially is seen sugges tive of atelectasis versus. OTHER: No free air under the diaphragm. IMPRESSION: Left basilar atelectasis versus pneumonia seen medially. Reviewed, dictated and finalized at location A. 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
[2024-04-21 14:25] VITALS: BP 107/65; PULSE 107; RESP 16; TEMP 36.8
[2024-04-21 15:11] LABS: EDCOVIDSCREEN Negative (Negative); EDINFLUASCREEN Negative (Negative); EDINFLUBSCREEN Negative (Negative)
--- NOTE | 2024-04-21 15:27 | ED_ITS ---
HPI - General Adult General Chief complaint: Upper Respiratory Infection Stated complaint: cough/chest burn/aches Source: patient Mode of arrival: ambulatory Limitations: no limitations History of Present Illness HPI narrative: Patient presents for evaluation of respiratory symptoms. She indicates several weeks ago she had a viral infection was treated with prednisone. On Tuesday of this week she had recurrence of her symptoms. She reports cough, scratchy throat, and pleuritic chest and back pain. No fever, chills, nausea vomiting, or diarrhea. She has been taking Tylenol and ibuprofen for symptoms. In the past she has responded favorably to the prednisone. Related Data Allergies Allergy/AdvReac Type Severity Reaction Status Date / Time No Known Allergies Allergy Verified 06/18/23 10:18 Review of Systems Review of Systems: CONSTITUTIONAL: Denies fever, chills, or sweats. EYES: Denies visual changes, redness, or discharge. ENT: Reports scratchy throat. Denies rhinorrhea, congestion, sore throat, or otalgia. CARDIOVASCULAR: Denies chest pain, palpitations, or edema. RESPIRATORY: Reports cough. Denies shortness of breath. Reports pleuritic chest and back pain. GASTROINTESTINAL: Denies abdominal pain, nausea, vomiting, or diarrhea. GENITOURINARY: Denies dysuria or hematuria. SKIN: Denies rash or itching. MUSCULOSKELETAL: Reports pleuritic chest and back pain. NEUROLOGIC: Denies headache, numbness, dizziness, or weakness. PSYCHIATRIC: Denies anxiety or depression. [facility] Past Medical History Medical History UTI (urinary tract infection) Anemia Pyelonephritis Surgical History Surgical History History of eye surgery X2 as a child for strabismus. Family History Family History Other Lupus Father Diabetes mellitus Hypertension Mother Neoplasm of back Social History Social History Social History: Surrogate decision maker: Juan Dang, spouse. Code status: Full code. Smoking packs per day: 0.1 Smoking cigarettes per day: 2.0 Smoking status: Current every day smoker Tobacco type: cigarettes Alcohol intake: never Substance use: former Substance use type: opiates Last use: 11 years Living arrangements: with family Additional living arrangements comments: The patient lives with her and 2 children in [place]. 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 Gender identity (if verbalized by the patient): Female Spiritual care concerns: No Exam Narrative: GENERAL: Well-appearing, well-nourished, and in no acute distress. HEAD: Normocephalic, atraumatic. EYES: PERRLA and EOMI. ENT: Nares clear, no rhinorrhea or epistaxis. Mucous membranes moist. Oropharynx without tonsillar hypertrophy exudate or other lesions. Bilateral TMs pearly neff nonbulging NECK: Supple. No adenopathy or masses. No carotid bruits or JVD CHEST: Cough present on exam. Clear to auscultation. No respiratory distress. No wheezes rales or rhonchi HEART: Regular rate and rhythm. No murmur heard. Normal peripheral pulses. ABDOMEN: Soft, nontender, nondistended, normal active bowel sounds. EXTREMITIES: Normal range of motion. No edema. SKIN: Warm, dry, no rash. NEURO: No focal deficits. Alert and oriented x3. PSYCH: Normal mood and affect. Course Course Emergency Course: This is a 38-year-old female who presented for evaluation of respiratory symptoms. Chest x-ray consistent with pneumonia. Will treat with azithromycin, Augmentin, prednisone, albuterol, and she requested a script for tessalon. Increase hydration. Follow up with primary provider. Go to the ER for worsening symptoms. Patient in agreement with plan of care. Level of Care: Express Care Visit Vital Signs Vital signs: Vital Signs Temperature 36.8 C 04/21/24 14:25 Pulse Rate 107 H 04/21/24 14:25 Respiratory Rate 16 04/21/24 14:25 Blood Pressure 107/65 04/21/24 14:25 Oxygen Delivery Room Air 04/21/24 14:25 Temperature 36.8 C 04/21/24 14:25 Pulse Rate 107 H 04/21/24 14:25 Respiratory Rate 16 04/21/24 14:25 Blood Pressure 107/65 04/21/24 14:25 Oxygen Delivery Room Air 04/21/24 14:25 Medical Decision Making Vital Signs Vital Signs: Vital Signs Temperature 36.8 C 04/21/24 14:25 Pulse Rate 107 H 04/21/24 14:25 Respiratory Rate 16 04/21/24 14:25 Blood Pressure 107/65 04/21/24 14:25 Oxygen Delivery Room Air 04/21/24 14:25 Temperature 36.8 C 04/21/24 14:25 Pulse Rate 107 H 04/21/24 14:25 Respiratory Rate 16 04/21/24 14:25 Blood Pressure 107/65 04/21/24 14:25 Oxygen Delivery Room Air 04/21/24 14:25 Lab Data Labs: Lab Results 04/21/24 Range/Units 15:09 POC Influenza A Ag Negative (Negative) POC Influenza B Ag Negative (Negative) POC SARS CoV-2 Ag Negative (Negative) Imaging Data Radiologist's impression: XR chest 2V Ordering provider: YSABEL Lopez History: 38 years Female with . cough . Comparison: None. FINDINGS: MEDIASTINUM: The cardiac silhouette is not enlarged. LUNGS: No effusions or pneumothorax. Minimal opacification the left lung base medially is seen suggestive of atelectasis versus. OTHER: No free air under the diaphragm. IMPRESSION: Left basilar atelectasis versus pneumonia seen medially. Discharge Plan Discharge Clinical Impression: Community acquired pneumonia Patient Disposition: Home, Self-Care Condition: Stable Instructions: Antibiotic Form, Community Acquired Pneumonia (DC) Patient Language: Thai Prescriptions: New azithromycin 250 mg tablet See Rx Instructions .ROUTE .COMPLEX Qty: 6 0RF Rx Instructions: For 250 mg dose pack: take 500 mg today (day 1), then 250 mg for 4 days (days 2-5) amoxicillin-pot clavulanate 875-125 mg tablet 1 tablet PO Q12H Qty: 20 0RF prednisone 50 mg tablet 50 mg PO DAILY Qty: 5 0RF benzonatate 200 mg capsule 200 mg PO TID PRN (Reason: cough) Qty: 30 0RF Follow-up/Referrals: Gonzalez Vicente MD [Physician] - Time of Disposition: 15:05
== END 2024-04-21 15:10 | disposition home or self-care (01) ==
PROVIDERS: Emergency Provider Nurse Practitioner
DX: J18.9 Pneumonia, unspecified organism (principal); Z20.822 Contact with and (suspected) exposure to COVID-19; F17.210 Nicotine dependence, cigarettes, uncomplicated
CPT/HCPCS: 71046; 87426; 87804; 99213; G0463

== ENCOUNTER 2024-10-14 08:32 | Emergency (ER) | payer BC, SELFPAY ==
[2024-10-14 08:35] VITALS: BP 104/73; PULSE 90; RESP 16; TEMP 37.1; O2SAT 100
--- NOTE | 2024-10-14 09:07 | ED_ITS ---
HPI - Female Genitourinary General Chief complaint: Urogenital-Female Stated complaint: possible Kidney Infection Time Seen by Provider: 10/14/24 09:07 Source: patient and RN notes reviewed Mode of arrival: ambulatory Limitations: no limitations History of Present Illness HPI Narrative: 39-year-old female presented for complaint of bilateral flank pain. Onset 2 days. Endorses a history of kidney infection which led to sepsis and hospitalization for 7 days. She states she wants to get ahead of this. Denies Dysuria, frequency, hematuria, nausea, vomiting, abdominal pain, constipation, diarrhea, fevers or chills. She has been monitoring closely for fever. Has increased water intake. Related Data Allergies Allergy/AdvReac Type Severity Reaction Status Date / Time No Known Allergies Allergy Verified 10/14/24 08:58 Review of Systems Review of Systems: CONSTITUTIONAL: Denies body aches, fever, chills, or sweats. CARDIOVASCULAR: Denies chest pain, palpitations, or edema. RESPIRATORY: Denies cough or dyspnea. GASTROINTESTINAL: Denies abdominal pain, nausea, vomiting, or diarrhea. GENITOURINARY: Reports flank pain, denies dysuria, frequency, urgency, hematuria,discharge SKIN: Denies rash, itching, or wounds. MUSCULOSKELETAL: Denies back pain or myalgia. [facility] Past Medical History Medical History UTI (urinary tract infection) Anemia Pyelonephritis Surgical History Surgical History History of eye surgery X2 as a child for strabismus. Family History Family History Other Lupus Father Diabetes mellitus Hypertension Mother Neoplasm of back Social History Social History Social History: Surrogate decision maker: Juan Dang, spouse. Code status: Full code. Smoking packs per day: 0.1 Smoking cigarettes per day: 2.0 Smoking status: Current every day smoker Tobacco type: cigarettes Alcohol intake: never Substance use: former Substance use type: opiates Last use: 11 years Living arrangements: with family Additional living arrangements comments: The patient lives with her and 2 children in [place]. 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 Gender identity (if verbalized by the patient): Female Spiritual care concerns: No Comments At time of signature, I have reviewed and agree with nursing past medical, surgical, social and family history unless otherwise noted. Please see nursing chart for further information. There is no relevant family history pertinent to the presenting complaint Exam Narrative: GENERAL: Well-appearing and in no acute distress. ENT: Mucous membranes pink and moist. NECK: Normal AROM. Supple. CHEST: No respiratory distress. Clear to auscultation. HEART: Regular rate and rhythm. ABDOMEN: Soft, nontender, nondistended, normal active bowel sounds. mild bilateral CVA tenderness SKIN: Warm, dry, no rash. NEURO: No focal deficits. Alert and oriented x3. Gait steady. PSYCH: Normal affect. Course Course Emergency Course: Patient is aware of diagnosis, understands and agrees to treatment plan. Anticipatory guidance given. Patient agrees to follow-up as directed and is aware of reasons to seek care at the emergency department. Portions of this record may have been created with voice recognition software Level of Care: Express Care Visit Vital Signs Vital signs: Vital Signs Temperature 98.8 F 10/14/24 08:35 Pulse Rate 90 10/14/24 08:35 Respiratory Rate 16 10/14/24 08:35 Blood Pressure 104/73 10/14/24 08:35 Pulse Oximetry 100 10/14/24 08:35 Oxygen Delivery Room Air 10/14/24 08:35 Temperature 98.8 F 10/14/24 08:35 Pulse Rate 90 10/14/24 08:35 Respiratory Rate 16 10/14/24 08:35 Blood Pressure 104/73 10/14/24 08:35 Pulse Oximetry 100 10/14/24 08:35 Oxygen Delivery Room Air 10/14/24 08:35 Reviewed MDM - Female Genitourinary MDM Narrative Medical decision making narrative: Discussed physical exam findings and urine dip. Will culture. Pt requesting steroid which helped the last time. Advised supportive measures and signs/symptoms to go to the ER. Pt is appropriate for outpt treatment and f/u. Differential Diagnosis Differential diagnosis: Likely urinary tract infection, cystitis and other ( renal colic, pyelonephritis, musculoskeletal injury) Discharge Plan Discharge Clinical Impression: Acute flank pain Patient Disposition: Home Condition: Stable Instructions: Antibiotic Form, Flank Pain (ED) Additional Instructions: Your urine will be sent of for a culture to determine if bacteria is causing your symptoms. If the culture shows a UTI, you will be notified and an antibiotic will be called in for you. continue to drink plenty water Tylenol as needed for pain you will need to follow up with your PCP Go to the ER for any worsening symptoms or concerns. Patient Language: [place] Island[place] Prescriptions: New ciprofloxacin HCl [Cipro] 500 mg tablet 500 mg PO Q12H 7 Days Qty: 14 0RF prednisone 20 mg tablet 40 mg PO DAILY 3 Days Qty: 6 0RF Follow-up/Referrals: PHYSICIAN,HOME PERFORMANCE LABORER [Primary Care Provider, Internal Medicine] Time of Disposition: 09:21
[2024-10-14 09:18] LABS: EDUAAPPEAR Clear; EDUABILI Negative (Negative); EDUABLOOD 1+ (Negative); EDUACOLOR1 Yellow; EDUAGLUCOSE Negative (Negative); EDUAKETONE Negative (Negative); EDUALEUKO Negative (Negative); EDUANITRATE Negative (Negative); EDUAPH 6.5; EDUAPROTEIN Negative (Negative); EDUASPGRAVITY 1.010; EDUAUROBILI 0.2
== END 2024-10-14 09:23 | disposition home or self-care (01) ==
PROVIDERS: Emergency Provider Nurse Practitioner Family
DX: R10.9 Unspecified abdominal pain (principal); F17.210 Nicotine dependence, cigarettes, uncomplicated
CPT/HCPCS: 81003; 87086; 99213; G0463